=== PATIENT | female | born 1965 | race Caucasian/White ===

== ENCOUNTER 2024-10-27 14:44 | Inpatient (IN) | payer MEDICARE, MEDICAID, SELFPAY ==
[2024-10-27 14:57] VITALS: BP 144/78; PULSE 80; RESP 18; TEMP 36.8; O2SAT 95
[2024-10-27 15:36] VITALS: BMI 37.6
--- OUTSIDE RECORDS SUMMARY | 2024-10-27 15:41 | XMS_ITS | Encounter Summary ---
Author Organization [facility] Address [address] [place] [address] Care Team Providers Care Editor Greeting Card Name Role Phone Rubio Boyd MD Primary Care Provider [phone] Encounter Details Date Type Department Care Team (Late st Contact Info) Description 05/29/2023 Orders Only [facility] Nuclear Medicine [address] [place] [address] Adrián Ugalde MD [address] [place] [address] Social History Tobacco Use Types Packs/Day Years Used Date Smoking Tobacco: Every Day Cigarettes Smokeless Tobacco: Never Comments:: Alcohol Use Standard Drinks/Week Comments Never 0 (1 standard drink = 0.6 oz pur e alcohol) Comments No Sex and Gender Information Value Date Recorded Sex Assigned at Female 10/01/2023 7:30 AM EDT Legal Sex Female 6:30 AM EDT Gender Identity Not on file Sexual Orientation Not on file documented as of this encounter Plan of Treatment Not on file documented as of this encounter Visit Diagnoses Not on filedocumented in this encounter Care Teams Editor Greeting Card Relationship Specialty Start Date End Date Rubio Boyd MD [address] [place] [address] PCP - General 10/18/16 documented as of this encounter
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
[2024-10-27 23:57] VITALS: BP 133/78; PULSE 68; RESP 16; TEMP 36.4; O2SAT 95
[2024-10-28 08:00] VITALS: BP 148/86; PULSE 75; RESP 20; TEMP 36.4; O2SAT 98
[2024-10-28] MEDS: Nicotine 21 MG PATCH.TD24 TRANSDERMA (08:50)
[2024-10-28 09:01] LABS: MANUAL DIFF FLAG NO
[2024-10-28 09:04] LABS: Hematocrit 44.8 % (37.0-47.0); Hemoglobin 14.4 g/dl (12.0-16.0); Imm Gran Abs Auto 0.07 X10*3/uL (0.00-0.03); Imm Gran Pct Auto 0.5 % (0.0-0.4); Lymphocytes Absolute Auto 3.7 X10*3/uL (1.2-4.9); Mean Corpuscular HGB Conc 32.1 g/dl (31.0-35.0); Mean Corpuscular Hemoglobin 30.9 pg (27.0-33.0); Mean Corpuscular Volume 96.1 fL (80.0-98.0); NRBC Abs Auto 0.000 X10*3/uL (0.0-0.012); NRBC Pct Auto 0.0 /100WBC (0.0-0.2); Platelet Count 314 X10*3/uL (160-400); Red Blood Count 4.66 X10*6/uL (4.20-5.50); White Blood Count 15.4 X10*3/uL (4.8-10.8)
[2024-10-28 09:10] LABS: Hemoglobin A1C 129.6365 umol/L; Total Hemoglobin (HGBA1C) 3791.4934 umol/L
[2024-10-28 09:23] LABS: Alanine Aminotransferase 33 U/L (0-31); Albumin Level 4.7 g/dL (3.5-5.0); Alkaline Phosphatase 103 U/L (39-117); Anion Gap 13 (12-20); Aspartate Amino Transferase 23 U/L (5-31); Blood Urea Nitrogen 14 mg/dL (9-16); Calcium 10.0 mg/dL (8.4-10.2); Carbon Dioxide 27 mmol/L (22-29); Chloride 108 mmol/L (96-108); Cholesterol 174 mg/dL (<200); Creatinine Clr Calc Pharmacy 88.7; Estimated Glomerular Filt Rate > 60; HDL Cholesterol 44 mg/dL (>40); Potassium 4.8 mmol/L (3.3-5.1); Sodium 143 mmol/L (135-145); Total Protein 7.3 g/dL (6.5-8.0); Triglycerides 185 mg/dL (<150)
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
--- NOTE | 2024-10-28 09:42 | HO.PM.IMCN ---
History of Present Illness Data of Consult Service Date: 10/28/24 Primary Care Provider: Rubio Boyd MD [facility] Reason for consult: Medical management 58-year-old female with a past medical history of bipolar disorder with noemy, anxiety, depression, hyperlipidemia, schizoaffective disorder, acid reflux and tremors. She was brought to the ED for abnormal behavior and driving erratically. Per reports she has been stable for 3-1/2 years. Her lithium level was noted to be low, unclear if she was taking her medications or not. her comprehensive metabolic panel was within normal limits, tox screen was negative. Her WBC were elevated on admission, to 20 K, repeated today 15.4. On exam she denies any shortness of breath, dizziness, lightheadedness or any other concerning symptoms. Denies dysuria. Reports to me that she stopped taking her medications because she was not home. Review of Systems Review of Systems: Denies any shortness of breath, chest pain, dizziness, lightheadedness, abdominal pain or discomfort, nausea vomiting or diarrhea PMFSH Social History Household Members: None Housing: Apartment Do you presently have visiting nurse or other home services: No Comment: not a fall risk Patient Tobacco Use Status: Former Tobacco user Currently Displaying Signs/Symptoms of Drug Intoxication Withdrawal: No Have you been hit, kicked, punched, or otherwise hurt by someone within the past year? If so, by whom?: No Do you feel safe in your current relationship?: No Current Relationship Is there a partner from a previous relationship who is making you feel unsafe now?: No Are you made to feel afraid or neglected: No Advance Directives: No Advance Directives Information Provided: Yes Do you have thoughts of harming others: None Do you have a plan to hurt others: No Plan Recently lost weight without trying: No How much weight loss: Not applicable Eating poorly because of decreased appetite: No Nutrition screen score: 0 Nutrition Risks: No Nutritional Risk Patient : No : No Poor oral hygiene: No service: No Sexual orientation: Straight/Heterosexual Meds Allergies Allergy/AdvReac Type Severity Reaction Status Date / Time amoxicillin Allergy Vomiting Verified 10/27/24 15:14 aspirin Allergy Unknown Verified 10/27/24 15:14 Active Medications: Current Medications Acetaminophen (Acetaminophen 325 Mg Tablet) 650 mg PO Q6H PRN PRN Reason: Headache/Pain, Scale 1-10 Al Hydroxide/Mg Hydroxide (Magnesium Hydrox/Alum Hydrox 30 Ml Oral.Susp) 30 ml PO Q6H PRN PRN Reason: Heartburn/Nausea Benztropine Mesylate (Benztropine Mesylate 0.5 Mg Tablet) 0.5 mg PO BID [facility] Last Admin: 10/28/24 08:49 Dose: 0.5 mg Clonazepam (Clonazepam 1 Mg Tablet) 1 mg PO BID PRN PRN Reason: Anxiety Hydroxyzine HCl (Hydroxyzine Hcl 25 Mg Tablet) 25 mg PO Q6H PRN PRN Reason: mild anxiety Lactic Acid (Ammonium Lactate 12 % Lotion 226 Gm Bottle) 1 appl TOPICAL BID PRN; Protocol PRN Reason: Dry Skin Metolius Carbonate (Metolius Carbonate Er 450 Mg Tablet.Er) 450 mg PO BID [facility] Last Admin: 10/28/24 08:49 Dose: 450 mg Loratadine (Loratadine 10 Mg Tablet) 10 mg PO DAILY [facility] Last Admin: 10/28/24 08:53 Dose: 10 mg Magnesium Hydroxide (Milk Of Magnesia 30 Ml Oral.Susp) 30 ml PO DAILY PRN PRN Reason: Constipation Nicotine (Nicotine 21 Mg Patch.Td24) 21 mg TRANSDERMA DAILY [facility] Last Admin: 10/28/24 08:50 Dose: 21 mg Nicotine Polacrilex (Nicotine Polacrilex 2 Mg Gum) 4 mg BUCCAL Q2H PRN PRN Reason: Nicotine Cravings Last Admin: 10/28/24 08:53 Dose: 4 mg Olanzapine (Olanzapine 10 Mg Tablet) 20 mg PO BEDTIME [facility] Last Admin: 10/27/24 20:35 Dose: 20 mg Omeprazole (Omeprazole 20 Mg Capsule.) 20 mg PO DAILY [facility] Last Admin: 10/28/24 08:49 Dose: 20 mg Oxcarbazepine (Oxcarbazepine 300 Mg Tablet) 300 mg PO TID [facility] Last Admin: 10/28/24 08:48 Dose: 300 mg Trazodone HCl (Trazodone Hcl 50 Mg Tablet) 50 mg PO BEDTIME MRX1 PRN PRN Reason: Insomnia Home Medications ?Medication ?Instructions ?Recorded ?Confirmed ?Last Taken ?Type ammonium lactate 12 % lotion (Skin 1 appl topical USEASDIRECTD 10/27/24 10/27/24 Unknown History Treatment) benztropine 0.5 mg tablet 0.5 mg PO BID 10/27/24 10/27/24 10/27/24 09:53 History cetirizine 10 mg tablet 10 mg PO DAILY 10/27/24 10/27/24 Unknown History clonazepam 1 mg tablet 1 mg PO BID PRN anxiety 10/27/24 10/27/24 Unknown History lithium carbonate 450 mg 450 mg PO BID 10/27/24 10/27/24 10/27/24 09:53 History tablet,extended release olanzapine 20 mg tablet 20 mg PO BEDTIME 10/27/24 10/27/24 10/26/24 20:39 History omeprazole 20 mg capsule,delayed 20 mg PO DAILY 10/27/24 10/27/24 Unknown History release oxcarbazepine 300 mg tablet 300 mg PO TID 10/27/24 10/27/24 10/27/24 14:05 History trazodone 50 mg tablet 50 mg PO BEDTIME 10/27/24 10/27/24 10/26/24 20:40 History Physical Exam Vital Signs and Narrative: Vital Signs: Last Vital Signs Temp 97.6 F 10/28/24 08:00 Pulse 75 10/28/24 08:00 Resp 20 10/28/24 08:00 BP 148/86 H 10/28/24 08:00 Pulse Ox 98 10/28/24 08:00 O2 Del Method Room Air 10/28/24 08:00 BMI result Body Mass Index 37.6 Alert and oriented X3, maintains good eye contact. Appears unkempt Neuro: CN II-X11 intact, no deficits, visual acuity intact EYES: PERRLA, EOM intact ENT: Hearing intact, lips moist Cardiac: S1 S2 RRR, No ectopy Pulmonary: lungs clear to auscultation, No increased WOB. Abdominal: BS active in all 4 quadrants, no guarding or tenderness MSK: Strength 5/5 upper and lower extremities : Deferred Extremities: No edema in lower extremities Psych: mood stable, Quiet and cooperative. Skin: Warm and dry, Intact Results Labs 10/28/24 08:48 10/28/24 08:48 Labs: Laboratory Results - last 24 hr 10/28/24 08:48 MCV 96.1 MCH 30.9 MCHC 32.1 RDW 12.4 Plt Count 314 MPV 9.2 L Immature Gran % (Auto) 0.5 H Neut % (Auto) 66.1 Lymph % (Auto) 24.0 [place] % (Auto) 5.5 Eos % (Auto) 3.1 Baso % (Auto) 0.8 Lymph # (Auto) 3.7 [place] # (Auto) 0.8 Eos # (Auto) 0.5 H Baso # (Auto) 0.1 Abs Immat Gran (auto) 0.07 H Absolute Neuts (auto) 10.2 H Absolute Nucleated RBC 0.000 Nucleated RBC % (auto) 0.0 Anion Gap 13 Estim Creat Clear Calc 88.7 Estimated GFR > 60 Random Glucose 121 H Estimat Average Glucose 105 Hemoglobin A1c % 5.3 Calcium 10.0 Total Bilirubin 0.4 Direct Bilirubin 0.1 AST 23 ALT 33 H Alkaline Phosphatase 103 Total Protein 7.3 Albumin 4.7 Triglycerides 185 H Cholesterol 174 LDL Cholesterol, Calc 93 HDL Cholesterol 44 Assessment and Plan (1) Acid reflux: Qualifiers: Esophagitis presence: esophagitis presence not specified Qualified Code(s): K21.9 - Gastro-esophageal reflux disease without esophagitis Status: Acute Plan Bipolar disorder with noemy/depression/anxiety Treatment per psychiatric team Acid reflux Continue Prilosec Leukocytosis We will obtain UA, and check CBC in a.m. No evidence of infection, she is afebrile, denies any fever or chills Thank you for allowing me to participate in the care of this patient. Signing off at this time. Please reconsult of any acute concerns or issues arise
[2024-10-28 20:00] VITALS: BP 137/77; PULSE 75; RESP 16; TEMP 36.6; O2SAT 96
[2024-10-29 07:00] VITALS: BMI 37.8
[2024-10-29 07:40] VITALS: BP 135/89; PULSE 79; RESP 16; TEMP 36.9; O2SAT 98
[2024-10-29 08:07] LABS: MANUAL DIFF FLAG NO
[2024-10-29 08:09] LABS: Hematocrit 40.4 % (37.0-47.0); Hemoglobin 13.1 g/dl (12.0-16.0); Imm Gran Abs Auto 0.05 X10*3/uL (0.00-0.03); Imm Gran Pct Auto 0.4 % (0.0-0.4); Lymphocytes Absolute Auto 3.5 X10*3/uL (1.2-4.9); Mean Corpuscular HGB Conc 32.4 g/dl (31.0-35.0); Mean Corpuscular Hemoglobin 30.7 pg (27.0-33.0); Mean Corpuscular Volume 94.6 fL (80.0-98.0); NRBC Abs Auto 0.000 X10*3/uL (0.0-0.012); NRBC Pct Auto 0.0 /100WBC (0.0-0.2); Platelet Count 297 X10*3/uL (160-400); Red Blood Count 4.27 X10*6/uL (4.20-5.50); White Blood Count 12.5 X10*3/uL (4.8-10.8)
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
[2024-10-29 20:00] VITALS: BP 138/75; PULSE 91; RESP 16; TEMP 36.2; O2SAT 97
[2024-10-30 07:38] VITALS: BP 140/85; PULSE 90; RESP 16; TEMP 36.2; O2SAT 95
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
[2024-10-30 20:25] VITALS: BP 135/76; PULSE 78; RESP 18; TEMP 35.9; O2SAT 95
[2024-10-31 07:49] VITALS: BP 139/82; PULSE 80; RESP 14; TEMP 36.1; O2SAT 96
[2024-10-31 20:29] VITALS: BP 144/81; PULSE 86; RESP 16; TEMP 36.9; O2SAT 95
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
[2024-11-01] MEDS: Magnesium Hydrox/Alum Hydrox 30 ML ORAL.SUSP PO (01:25)
[2024-11-01 07:18] LABS: Lithium 0.81 mmol/L (0.60-1.20)
[2024-11-01 07:25] LABS: Anion Gap 10 (12-20); Blood Urea Nitrogen 19 mg/dL (9-16); Calcium 9.8 mg/dL (8.4-10.2); Carbon Dioxide 28 mmol/L (22-29); Chloride 109 mmol/L (96-108); Creatinine Clr Calc Pharmacy 100.0; Estimated Glomerular Filt Rate > 60; Potassium 4.3 mmol/L (3.3-5.1); Sodium 143 mmol/L (135-145)
[2024-11-01 08:00] VITALS: BP 101/55; PULSE 66; RESP 18; TEMP 36.4; O2SAT 95
[2024-11-01 08:15] VITALS: BP 101/55; PULSE 66; RESP 18; TEMP 36.4; O2SAT 95
[2024-11-01 15:23] VITALS: BP 120/66
[2024-11-01 19:30] VITALS: BP 117/66; PULSE 89; RESP 16; TEMP 36.5; O2SAT 96
[2024-11-01 21:01] VITALS: BP 117/66; PULSE 89
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
[2024-11-02 07:45] LABS: MANUAL DIFF FLAG NO
[2024-11-02 07:52] LABS: Hematocrit 43.6 % (37.0-47.0); Hemoglobin 14.1 g/dl (12.0-16.0); Imm Gran Abs Auto 0.10 X10*3/uL (0.00-0.03); Imm Gran Pct Auto 0.7 % (0.0-0.4); Lymphocytes Absolute Auto 4.4 X10*3/uL (1.2-4.9); Mean Corpuscular HGB Conc 32.3 g/dl (31.0-35.0); Mean Corpuscular Hemoglobin 31.0 pg (27.0-33.0); Mean Corpuscular Volume 95.8 fL (80.0-98.0); NRBC Abs Auto 0.000 X10*3/uL (0.0-0.012); NRBC Pct Auto 0.0 /100WBC (0.0-0.2); Platelet Count 326 X10*3/uL (160-400); Red Blood Count 4.55 X10*6/uL (4.20-5.50); White Blood Count 14.6 X10*3/uL (4.8-10.8)
[2024-11-02 08:00] VITALS: BP 137/83; PULSE 80; RESP 16; TEMP 36.2; O2SAT 99
[2024-11-02 08:12] VITALS: BP 124/76; PULSE 80
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
== END 2024-11-02 10:52 | disposition home or self-care (01) | DRG 885 ==
PROVIDERS: Nurse Practitioner Family; Nurse Practitioner Psychiatric/Mental Health; Admitting Provider Psychiatry & Neurology Psychiatry; PCP Family Medicine; Responsible Provider Registered Nurse; Visit Provider Psychiatry & Neurology Psychiatry
DX: F31.9 Bipolar disorder, unspecified (principal); K21.9 Gastro-esophageal reflux disease without esophagitis; F43.10 Post-traumatic stress disorder, unspecified; F41.9 Anxiety disorder, unspecified; Z87.891 Personal history of nicotine dependence; Z79.899 Other long term (current) drug therapy
CPT/HCPCS: 36415; 80048; 80053; 80061; 80178; 82248; 83036; 85025; 87086

== ENCOUNTER → 2024-10-27 14:44 | Outpatient (BNV) | payer MEDICARE, MEDICAID, SELFPAY | PROVIDERS: Admitting Provider Psychiatry & Neurology Psychiatry; PCP Family Medicine; Visit Provider Nurse Practitioner Family | DX: F31.9 Bipolar disorder, unspecified (principal); F43.11 Post-traumatic stress disorder, acute; F41.9 Anxiety disorder, unspecified | CPT/HCPCS: 90792; 99231; 99232; 99238 ==

== ENCOUNTER → 2024-10-27 14:44 | Outpatient (BNV) | payer MEDICARE, MEDICAID, SELFPAY | PROVIDERS: Admitting Provider Psychiatry & Neurology Psychiatry; PCP Family Medicine; Visit Provider Nurse Practitioner Family | DX: K21.9 Gastro-esophageal reflux disease without esophagitis (principal) | CPT/HCPCS: 99221 ==